=== PATIENT | male | born 1950 | race Asian ===

== ENCOUNTER 2017-01-07 22:15 | Inpatient (IN) | payer MEDICAID ==
[2017-01-07 22:44] VITALS: BP 144/84
[2017-01-07] MEDS ORDERED: HYDROmorphone 1 mg/mL 1mL Syr IVP PRN (22:50)
[2017-01-08 05:48] LABS: % BASOPHILS 0.4 % (0.0-2.0); % EOSINOPHILS 2.1 % (0.0-5.0); % LYMPHOCYTES 16.1 % (20.0-50.0); % MONOCYTES 5.5 % (2.0-10.0); % NEUTROPHILS 75.9 % (40.0-80.0); HEMATOCRIT 42.8 % (39.0-49.0); HEMOGLOBIN 14.5 gm/dL (12.6-17.4); MEAN CELL VOLUME 88.7 fl (80-99); MEAN CORPUSCULAR HEMOGLOBIN 30.1 pg (27.0-31.0); MEAN PLATELET VOLUME 9.1 fl; NEUTROPHILE ABSOLUTE 7.7 Th/cmm (1.8-8.0); PLATELET COUNT 153 Th/cmm (150-400); RED BLOOD COUNT 4.82 Mil/cmm (3.80-5.80); RED CELL DISTRIBUTION WIDTH 13.2 % (11.5-20.0); WHITE BLOOD COUNT 10.1 Th/cmm (4.8-10.8)
[2017-01-08 06:27] LABS: ALB/GLOB RATIO 1.5 (1.0-1.8); ALKALINE PHOSPHATASE 47 U/L (34-104); ANION GAP 5.5 (7.0-16.0); BILIRUBIN,TOTAL 0.6 mg/dL (0.3-1.0); BUN - UREA NITROGEN 22 mg/dL (7-25); BUN/CREATININE RATIO 18.3; CALCIUM SERUM 9.1 mg/dL (8.6-10.3); CARBON DIOXIDE 25.6 mEq/L (21.0-31.0); CHLORIDE 109 mEq/L (98-107); CREATININE - SERUM 1.2 mg/dL (0.7-1.3); GLUCOSE 124 mg/dL (70-105); POTASSIUM SERUM 3.1 mEq/L (3.5-5.1); SGOT 17 U/L (13-39); SGPT/ALT 22 U/L (7-52); SODIUM SERUM 137 mEq/L (136-145)
[2017-01-08] MEDS ORDERED: Potassium Chloride 20 mEq ER Tab PO ONE (06:36)
[2017-01-08] MEDS ORDERED: Non-Formulary Item 1 EA (Carvedilol [Coreg] 25 MG) PO PRN (08:54)
[2017-01-08] MEDS ORDERED: [UNRECOGNIZED DRUG - OTHER] PO SCH (09:00)
--- NOTE | 2017-01-08 09:23 | General Progress Note ---
Subjective - Review of Systems Service Date: 01/08/17 Subjective: I am fine Objective - Results Result Diagrams: 01/08/17 05:13 01/08/17 05:13 Recent Labs: Laboratory Last Values WBC 10.1 Th/cmm (4.8-10.8) 01/08/17 05:13 RBC 4.82 Mil/cmm (3.80-5.80) 01/08/17 05:13 Hgb 14.5 gm/dL (12.6-17.4) 01/08/17 05:13 Hct 42.8 % (39.0-49.0) 01/08/17 05:13 MCV 88.7 fl (80-99) 01/08/17 05:13 MCH 30.1 pg (27.0-31.0) 01/08/17 05:13 MCHC Differential 34.0 pg (28.0-36.0) 01/08/17 05:13 RDW 13.2 % (11.5-20.0) 01/08/17 05:13 Plt Count 153 Th/cmm (150-400) 01/08/17 05:13 MPV 9.1 fl 01/08/17 05:13 Neutrophils % 75.9 % (40.0-80.0) 01/08/17 05:13 Lymphocytes % 16.1 % (20.0-50.0) L 01/08/17 05:13 Monocytes % 5.5 % (2.0-10.0) 01/08/17 05:13 Eosinophils % 2.1 % (0.0-5.0) 01/08/17 05:13 Basophils % 0.4 % (0.0-2.0) 01/08/17 05:13 Sodium 137 mEq/L (136-145) 01/08/17 05:13 Potassium 3.1 mEq/L (3.5-5.1) L 01/08/17 05:13 Chloride 109 mEq/L (98-107) H 01/08/17 05:13 Carbon Dioxide 25.6 mEq/L (21.0-31.0) 01/08/17 05:13 Anion Gap 5.5 (7.0-16.0) L 01/08/17 05:13 BUN 22 mg/dL (7-25) 01/08/17 05:13 Creatinine 1.2 mg/dL (0.7-1.3) 01/08/17 05:13 Est GFR ( Amer) > 60.0 ml/min (>90) 01/08/17 05:13 Est GFR (Non-Af Amer) > 60.0 ml/min 01/08/17 05:13 BUN/Creatinine Ratio 18.3 01/08/17 05:13 Glucose 124 mg/dL (70-105) H 01/08/17 05:13 Calcium 9.1 mg/dL (8.6-10.3) 01/08/17 05:13 Total Bilirubin 0.6 mg/dL (0.3-1.0) 01/08/17 05:13 AST 17 U/L (13-39) 01/08/17 05:13 ALT 22 U/L (7-52) 01/08/17 05:13 Alkaline Phosphatase 47 U/L (34-104) 01/08/17 05:13 Troponin I 0.01 ng/mL (0.01-0.05) 01/08/17 05:13 Total Protein 6.3 gm/dL (6.0-8.3) 01/08/17 05:13 Albumin 3.8 gm/dL (4.2-5.5) L 01/08/17 05:13 Globulin 2.5 gm/dL 01/08/17 05:13 Albumin/Globulin Ratio 1.5 (1.0-1.8) 01/08/17 05:13 TSH 9.76 uIU/ml (0.34-5.60) H 01/08/17 05:13 - Physical Exam Vitals and I&O: Vital Signs Temp 97.4 F 01/08/17 08:26 Pulse 69 01/08/17 08:26 Resp 18 01/08/17 08:26 BP 124/78 01/08/17 08:26 Pulse Ox 95 01/08/17 08:26 Intake & Output 01/07/17 01/08/17 01/08/17 18:59 06:59 18:59 Intake Total 200 Balance 200 Weight (lbs) 83.461 kg Intake: Oral 200 Active Medications: Current Medications Acetaminophen (Tylenol) 650 mg PO Q6H PRN PRN Reason: Fever > 101 Stop: 03/08/17 22:50 Last Admin: 01/07/17 23:40 Dose: 650 mg Clonidine HCl (Catapres) 0.1 mg PO BID COUNT INCLUDES THE [facility] Stop: 03/09/17 09:14 Docusate Sodium (Colace) 100 mg PO BID [facility]AN[place] Stop: 03/09/17 16:59 Hydrochlorothiazide (Hctz) 12.5 mg PO DAILY [facility]AN[place] Stop: 03/09/17 09:14 Hydromorphone HCl (Dilaudid) 1 mg IVP Q6HR PRN PRN Reason: Chest Pain Stop: 03/08/17 22:49 Levothyroxine Sodium (Synthroid) 0.025 mg PO QDAC COUNT INCLUDES THE [facility] Stop: 03/10/17 07:29 Losartan Potassium (Cozaar) 50 mg PO DAILY COUNT INCLUDES THE [facility] Stop: 03/09/17 09:14 Ondansetron HCl (Zofran) 4 mg IV Q6H PRN PRN Reason: Nausea / Vomiting Stop: 03/08/17 22:52 Pneumococcal Polyvalent Vaccine (Pneumovax) 0.5 ml IM .ONCE ONE Stop: 01/08/17 12:01 General: Alert, Oriented x3, Cooperative, No acute distress, Moderate distress Neck: Supple Cardiovascular: Regular rate Lungs: Clear to auscultation Abdomen: Bowel sounds, Soft Extremities: Other (No edema) Neurological: Normal gait, Normal speech Skin: Other (Warm and dry) Psych/Mental Status: Mental status NL Assessment/Plan - Assessment Assessment: Patient is awake, alert, calm. Dx: Chest pain, HTN, Hypothyroidism - Plan Plan: Echocardiogram requested.
[2017-01-08] MEDS ORDERED: Pneumococcal Vaccine 0.5 mL Vial IM ONE (12:00)
--- NOTE | 2017-01-08 12:28 | History & Physical ---
ADMIT DATE: 01/07/2017 CHIEF COMPLAINT: Chest pain. HISTORY OF PRESENT ILLNESS: This is a case of a 66-year-old, [place] male. Initially, he went to [facility] ER due to chest pain and high blood pressure. During examination in ER, blood pressure was little bit high at 15/90, troponin negative. The patient received aspirin and due to this, the patient was transferred to this hospital to continue treatment. PAST MEDICAL HISTORY: The patient has past medical history of hypertension and hypothyroidism. SOCIAL HISTORY: The patient denies use of alcohol, drugs or smoking. SURGERIES: Unremarkable. MEDICATIONS: Reviewed. ALLERGIES: No known allergies. REVIEW OF SYSTEMS: LUNGS: The patient denies shortness of breath. CHEST: The patient referred chest pain. Right now, no chest pain. ABDOMEN: Unremarkable. EXTREMITIES: Unremarkable. PHYSICAL EXAMINATION: GENERAL: Does reveal a fairly nourished and developed male, awake, alert, in no acute distress. HEENT: Head is normocephalic and atraumatic. Eyes: Pupils reactive to light. Nose: No evidence of nasal obstruction. Ears: No evidence of any discharge. Mouth: Fairly ____. LUNGS: Bilateral air entry. No wheezing, no crackles. HEART: Regular rhythm. ABDOMEN: Soft, nontender, bowel sounds present. EXTREMITIES: No edema. Full movement of all extremities. NEUROLOGICAL: The patient is awake, alert, in no acute distress. Nerves 2-12 grossly intact. IMPRESSION: 1. Chest pain. 2. Hypertension. 3. Hypothyroidism. PLAN: 1. The patient will be admitted in the telemetry unit. 2. DIET: Low sodium. 3. Consult with Cardiology. 4. Continue with home medications. 5. CBC, CMP, TSH and troponins at a.m. JOB# [id number]
--- NOTE | 2017-01-08 13:16 | Cardiology ---
01/07/2017 ECHOCARDIOGRAM M-MODE ECHOCARDIOGRAM: Mitral valve, anterior leaflet of mitral valve shows normal excursion, EF velocity. Posterior leaflet of mitral valve shows normal excursion. Left ventricular posterior wall shows increased thickness, normal excursion. Interventricular septum shows increased thickness, normal excursion, hypertrophy of the left ventricle, ejection fraction 55%. Left atrium normal. Aortic root shows normal dimension, normal excursion of aortic leaflets. CONCLUSION: Hypertrophy of the left ventricle, ejection fraction 55%. 2D ECHO: Long axis view show normal size left ventricle with hypertrophy of the left ventricle. Left atrium normal. Aortic root shows normal dimension, normal excursion of aortic leaflets. Short axis view of mitral valve normal shock. Short axis view of aortic valve normal. Apical four chamber view showed normal size left ventricle, left atrium, right ventricle, right atrium ____. Ejection fraction 55%. CONCLUSION: Hypertrophy of the left ventricle, ejection fraction 55%. Doppler study shows prominent A wave consistent with poor compliance of left ventricle, mild mitral regurgitation and mild tricuspid regurgitation, ejection fraction 55%. [facility]# [id number]
--- NOTE | 2017-01-09 06:33 | Consultation ---
DATE OF CONSULTATION: 01/08/[address] Martinez. HISTORY AND PHYSICAL: This 66-year-old ____ male patient who had been complaining of headache following this patient was seen at [facility] with the blood pressure of 180/120; hence, the patient was treated and transferred to [facility] because of insurance reasons. PAST MEDICAL HISTORY: Hypertension, hyperlipidemia. FAMILY HISTORY: Unremarkable. SOCIAL HISTORY: No history of smoking, alcohol abuse. ALLERGIES: No known allergies. PHYSICAL EXAMINATION: VITAL SIGNS: On admission, blood pressure is 180/120, at the present time, 130/80, pulse 70, respirations 20. HEAD: Normocephalic. No lumps or bumps. EYES: Pupils equal, reactive to light. Fundi show AV nicking. Sclerae white, conjunctivae pink. NECK: Carotid 2+. Normal upstroke. JVD flat. Thyroid not palpable. Lymph nodes not palpable. CHEST: Shows increased AP diameter. No kyphosis or scoliosis. LUNGS: Bilateral bronchovesicular breath sounds. HEART: PMI, fifth intercostal space with lateral to midclavicular line. S1, S2. No S3, S4. Systolic murmur, grade 2/6, lower left sternal border without radiation. ABDOMEN: Soft. Liver, spleen not palpable. No organomegaly. Bowel sounds are active. NEUROLOGIC: Unremarkable. EXTREMITIES: Peripheral pulses 1+. No pedal edema. The patient had an echocardiogram, which showed mild left ventricular hypertrophy, mild mitral regurgitation, tricuspid regurgitation, ejection fraction 55%. CLINICAL IMPRESSION AND PLAN: Hypertension. Hyperlipidemia. The patient's troponin level is normal. The patient's blood pressure controlled, hence, the patient will be discharged to be followed by PCP as an outpatient. JOB# [id number]
[2017-01-09] MEDS ORDERED: Levothyroxine 0.025 Mg Tab PO SCH (07:30)
== END 2017-01-08 15:35 | disposition home or self-care (01) | DRG 198 ==
LOC: TELE 22:15
PROVIDERS: ADMIT General Practice; ATTEND General Practice
DX: I25.10 Atherosclerotic heart disease of native coronary artery without angina pectoris (principal); E11.65 Type 2 diabetes mellitus with hyperglycemia; I11.9 Hypertensive heart disease without heart failure; E03.9 Hypothyroidism, unspecified; E78.5 Hyperlipidemia, unspecified; I08.1 Rheumatic disorders of both mitral and tricuspid valves
CPT/HCPCS: 36415-UA; 80053-TC; 84443-TC; 84484-TC; 85025-TC; Z7610